=== PATIENT | male | born 1940 | race Caucasian/White ===

== ENCOUNTER 2017-07-05 16:06 | Emergency (ER) | payer MEDICARE ==
--- NOTE | 2017-07-05 16:48 | ED Physician Documentation ---
PD HPI SKIN - Stated complaint Stated Complaint: BEE STING - Chief complaint Chief Complaint: Allergic Rx - History obtained from History obtained from: Patient - History of Present Illness Timing - onset: How many hours ago (1) Timing - duration: Hours (1) Timing - details: Abrupt onset Location: Bodywide (he got stung in left ahnd and noted redness swelling itching in hand, but then got some all over. Also noted a tight feeling in chest. No feeling of swelling of throat, tongue. No lightheadedness. Has not had similar symptoms previously.) Quality / character: Itchy Associated symptoms: Other (chest tightness). No: Dyspnea, N/V/D Contributing factors: Insect bite /sting (bee) Similar symptoms before: Has not had sx before Recently seen: Not recently seen Review of Systems Constitutional: denies: Fever, Chills, Myalgias Cardiac: reports: Chest pain / pressure. denies: Palpitations, Pedal edema Respiratory: denies: Dyspnea, Wheezing Skin: reports: Rash Neurologic: denies: Near syncope PD PAST MEDICAL HISTORY - Past Medical History Cardiovascular: None Respiratory: None Neuro: None Endocrine/Autoimmune: None - Present Medications Home Medications: Ambulatory Orders Medication Instructions Recorded Confirmed Cetirizine [ZyrTEC] 10 mg PO DAILY #20 tablet 07/05/17 Dexamethasone [Decadron] 4 mg PO DAILY #5 tablet 07/05/17 EPINEPHrine [Epinephrine] 0.3 mg IJ ONCE PRN #1 auto.injct 07/05/17 - Allergies Allergies/Adverse Reactions: Allergies Allergy/AdvReac Type Severity Reaction Status Date / Time No Known Drug Allergies Allergy Verified 07/05/17 16:19 PD ED PE NORMAL - Vitals Vital signs reviewed: Yes - General General: Alert and oriented X 3, No acute distress, Well developed/nourished - HEENT HEENT: Ears normal, Pharynx benign (with minimal swelling left side of tongue) - Neck Neck: Supple, no meningeal sign, No adenopathy - Cardiac Cardiac: RRR, No murmur - Respiratory Respiratory: Clear bilaterally - Abdomen Abdomen: Soft, Non tender - Derm Derm: Normal color, Warm and dry, Other (diffuse hives rash which is itchy. Left hand with swelling and redness around sting site dorsum. ) - Extremities Extremities: No tenderness to palpate, Normal ROM s pain - Neuro Neuro: Alert and oriented X 3, No motor deficit, Normal speech Results - Vitals Vitals: Oxygen O2 Source Room air PD MEDICAL DECISION MAKING - ED course Complexity details: re-evaluated patient (doing better and rash/symptoms greatly improved. ), considered differential (general allergic reaction to bee sting with mild anaphylactic symptoms. Given epi and other meds with good improvment. ), d/w patient Departure - Departure Disposition: 01 Home, Self Care Clinical Impression: Allergic reaction to bee sting Condition: Stable Record reviewed to determine appropriate education?: Yes Instructions: ED Bite Sting Insect Gen Allergic React Follow-Up: LAWRENCE SOTO MD [Primary Care Provider] - Prescriptions: Cetirizine [ZyrTEC] 10 mg PO DAILY #20 tablet Dexamethasone [Decadron] 4 mg PO DAILY #5 tablet EPINEPHrine [Epinephrine] 0.3 mg IJ ONCE PRN #1 auto.injct PRN Reason: Anaphylaxis Comments: Carry an EpiPen with you when doing yard work or where he might get stung by B. For the next few days continue the Decadron steroid orally daily. Also use antihistamine cetirizine daily for a week or so. Add Benadryl short term if needed for itching or hives. Return if significant symptoms again such as trouble breathing, swollen lips or tongue, trouble breathing. Discharge Date/Time: 07/05/17 18:48
[2017-07-05] MEDS ORDERED: EPINEPHrine 1 MG/ML AMP SUBQ STA (16:56)
[2017-07-05] MEDS ORDERED: SODIUM CHLORIDE 0.9% 1,000 ML IV ONE (16:56)
[2017-07-05] MEDS ORDERED: diphenhydrAMINE INJ 50 MG/ML VIAL IVP STA (16:57)
[2017-07-05] MEDS ORDERED: DEXAMETHASONE 10 MG/ML VIAL IVP STA (16:57)
[2017-07-05] MEDS ORDERED: CETIRIZINE 10 MG TABLET PO STA (16:57)
[2017-07-05 18:48] VITALS: BP 125/68
== END 2017-07-05 18:48 | disposition home or self-care (01) ==
LOC: ED 16:06
DX: T63.441A Toxic effect of venom of bees, accidental (unintentional), initial encounter (principal); R22.9 Localized swelling, mass and lump, unspecified; L50.0 Allergic urticaria
CPT/HCPCS: 36415; 96361; 96372; 96374; 96375; 99283; 99284; A9270; J1200

== ENCOUNTER 2021-05-29 13:34 | Outpatient (CLI) | payer MEDICARE ==
--- NOTE | 2021-05-30 09:37 | CT Report ---
PROCEDURE: Low Dose Lung Cancer Screen INDICATIONS: SCREENING FOR LUNG CA TECHNIQUE: Noncontrast low-dose images were acquired from the pulmonary apices to the posterior costophrenic ang les. Multiplanar MIP reformats were then acquired. For radiation dose reduction, the following was used: automated exposure control, adjustment of mA and/or kV according to patient size. COMPARISON: None. FINDINGS: Image quality: Excellent. Lungs and pleura: There are small lung nodules. Nodule 1: 4 mm; right lower lobe; series 4 image 154; subsolid. Nodule 2: 3 mm; right lower lobe; series 4 image 174; solid. Nodule 3: 3 mm; left lower lobe; series 4 image 99; solid. Focal infiltrate or pleural effusion. Bibasilar atelectasis. Mediastinum: Heart size is normal. No pericardial effusion. No mediastinal adenopathy by size crit eria. Thoracic aorta and central pulmonary arteries are normal in size. Esophagus is normal in ranulfo davonte. No hiatal hernia. Bones and chest wall: No suspicious bony lesions. No vertebral body compression fractures. No axil sandhya or supraclavicular adenopathy by size criteria. The thyroid is normal in size and there are no incidental findings. Abdomen: There are multiple low-density masses/nodules in liver. Severe atherosclerotic calcificatio n of aorta IMPRESSION: 1. There are small lung nodules bilaterally. ACR lung RADS category 2. Recommend screening lung CT in 12 months. 2. Multiple low-density nodules in liver, most likely cysts. If clinically indicated, ultrasound may be obtained for further evaluation. Fleischner Society criteria for SOLID lung nodule followup. Nodule size (mm)Low-risk patientHigh-risk patient "d4No follow-up neededFollow-up at 12 mo; if no change, no further follow-up >[id number]-ra CT at 12 mo; if no change, no further follow-up needed.Initial follow-up CT at 6-12 mo, then 18-24 mo if no change. >6-8Initial follow-up CT at 6-12 mo, then 18-24 mo if no change. Initial follow-up CT at 3-6 mo, then 9-12 mo and 24 mo if no change. >8Follow-up CT at 3, 9, 24 mo. Or PET and/or biopsy.Same as for low-risk pts. Fleischner Society criteria for SUB-SOLID lung nodule followup. Solitary pure ground-glass nodules 5 mm or lessNo followup needed. >5 mm3 mo follow-up CT to confirm persistence. Then annual CT for 3 years. Part-solid nodules3 mo follow-up CT to confirm persistence. If persistent with solid component <5 mm , annual CT for at least 3 years. If solid component is 5 mm or more, biopsy or surgical resection. Consider PET-CT for lesions > 10 mm. Multiple sub-solid nodules Pure ground glass nodules [address] at 2 and 4 years. Pure ground glass nodules >5 mm without dominant lesion. [address] to confirm persistence, then annual followup CT for at least 3 years. Dominant nodule(s) with part-solid or solid component. [address] to confirm persistence. If persistent, consider biopsy or surgical resection, wes if lesions have >5 mm solid component. Reviewed by: Deni Rea MD on 05/30/2021 9:36 AM PST Approved by: Deni Rea MD on 05/30/2021 9:36 AM PST Station ID: [id number]
== END 2021-05-29 13:35 | disposition home or self-care (01) ==
LOC: DI 13:34
PROVIDERS: ATTEND Nurse Practitioner Family
DX: Z12.2 Encounter for screening for malignant neoplasm of respiratory organs (principal); R91.8 Other nonspecific abnormal finding of lung field; K76.89 Other specified diseases of liver; Z87.891 Personal history of nicotine dependence

== ENCOUNTER 2022-06-10 12:29 | Outpatient (CLI) | payer MEDICARE ==
--- NOTE | 2022-06-10 20:29 | CT Report ---
PROCEDURE: CHEST WO INDICATIONS: MULTIPLE LUNG NODULES TECHNIQUE: Noncontrast 1mm axial images were acquired from the pulmonary apices to the posterior costophrenic an gles. Axial 5 mm soft tissue kernel reconstructions were performed as well as 8 mm axial MIP and cor onal and sagittal 5 mm reformations. For radiation dose reduction, the following was used: automate d exposure control, adjustment of mA and/or kV according to patient size. COMPARISON: Low-dose screening CT chest dated 05/29/2021 FINDINGS: Image quality: Excellent. Lungs and pleura: 2 mm solid nodule in lateral right upper lobe near apex series 4 image 72 unchanged from prior study. 2 mm solid nodule in anterolateral left upper lobe series 4 image 76 unchanged from prior study. 4 mm subtle solid nodule again seen in posterior right lower lobe unchanged from prior study series 4 image 154. 3 mm solid nodule again noted adjacent to posterior pleura of right lower lobe series 4 image 174 unc hanged from prior study. 3 mm solid nodule adjacent to major fissure in anterior left lower lobe is also unchanged series 4 im age 89 There is biapical scarring. No acute air space opacities. No pleural effusions or pneumothorax. Óscar tral and peripheral airways are patent and normal in caliber. Mediastinum: Heart size is normal. No pericardial effusion. Mild to moderate atherosclerotic calcif ications in coronary vessels and thoracic aorta is seen. No mediastinal adenopathy by size criteria. Thoracic aorta and central pulmonary arteries are normal in size. Esophagus is normal in caliber. No hiatal hernia. Bones and chest wall: No suspicious bony lesions. No vertebral body compression fractures. No axil sandhya or supraclavicular adenopathy by size criteria. The thyroid is normal in size and there are no incidental findings. Abdomen: Visualized upper abdominal solid organs and bowel loops appear normal in the absence of con trast. Numerous well-circumscribed hepatic cysts are again seen unchanged from prior study. IMPRESSION: 1. Tiny sub-5 mm nodules seen in bilateral lung garcia unchanged in size and appearance from prior st udy. No new pulmonary nodule is seen. Finding likely represent benign process. No further follow-up i s indicated at this time. 2. No mediastinal or hilar lymphadenopathy by size criteria. 3. Mild to moderate atherosclerotic disease. CLINICAL RECOMMENDATION STATEMENTS: In patients <35 years with an ITN detected on CT, MRI, or extrathyroidal ultrasound, the Committee re commends further evaluation with dedicated thyroid ultrasound if the nodule is "e1 cm and has no susp icious imaging features, and if the patient has normal life expectancy. In patients "e35 years with an ITN detected on CT, MRI, or extrathyroidal ultrasound, the Committee r ecommends further evaluation with dedicated thyroid ultrasound if the nodule is "e1.5 cm and has no s uspicious imaging features, and if the patient has normal life expectancy. (ACR, 2014) Reviewed by: Solo Broderick MD on 06/10/2022 8:28 PM PST Approved by: Solo Broderick MD on 06/10/2022 8:28 PM PST Station ID: [id number]
== END 2022-06-10 12:30 | disposition home or self-care (01) ==
LOC: DI 12:29
PROVIDERS: ATTEND Nurse Practitioner Family
DX: R91.8 Other nonspecific abnormal finding of lung field (principal); I70.0 Atherosclerosis of aorta; I25.10 Atherosclerotic heart disease of native coronary artery without angina pectoris